=== PATIENT | female | born 1970 | race Caucasian/White ===

== ENCOUNTER 2017-09-08 15:12 | Emergency (ER) | payer OTHER, SELFPAY ==
--- NOTE | 2017-09-08 15:38 | HMH.EDUTC ---
[facility] – [place], [place] Disposition Clinical Impression: Left knee pain Qualifiers: Chronicity: chronic Qualified Code(s): M25.562 - Pain in left knee; G89.29 - Other chronic pain Disposition: Home, Self-Care Condition on Discharge: Good Prescriptions: Naproxen [Naprosyn 500mg tablet] 500 mg PO BID 15 Days #30 tab Referrals: Alee Bhagat APRN [Primary Care Provider] - Shaan Naranjo MD [Staff Physician] - Time of Disposition: 17:11 Medical Decision Making - Santosh Inquiry Pt receiving controlled substance: No Vital Signs: 09/08/17 15:44 Temperature 99.3 F Temperature Source Temporal Artery Scan Pulse Rate [Right Radial] 84 Respiratory Rate 20 Blood Pressure [Right Arm] 190/114 Blood Pressure Mean [Right Arm] 139 Blood Pressure Source [Right Arm] Manual Cuff/ Palpation Blood Pressure Position [Right Arm] Sitting 02 Sat by Pulse Oximetry 96 Oxygen Delivery Method Room Air Orders (Tests/Meds): ORDERS Category Date Time Status Knee XR left 4 views [XR knee LT 4V] Stat Exams 09/08/17 15:50 Taken - Radiology Data #1 Image Reviewed: Yes I reviewed the patient's radiology image Preliminary Findings: Abnormal (Osteoarthritis; no fracture) [facility] – [place], [place] HPI - General Stated complaint: painful knot on l knee Time Seen by Provider: 09/08/17 15:38 - History of Present Illness Provider Complaint: Patient states has had painful knot on left knee for several months without injury. Left knee has swelling as well. Location: left, lower extremity Quality: aching Relieving factors: none Exacerbating factors: movement Treatments prior to arrival: NSAID - Related Data Previous Rx's Medication Instructions Recorded Naproxen [Naprosyn 500mg tablet] 500 mg PO BID 15 Days #30 tab 09/08/17 Allergies Allergy/AdvReac Type Severity Reaction Status Date / Time No Known Allergies Allergy Verified 09/08/17 15:49 [facility] History I have reviewed the patient's past medical history: Yes Medical History: Reports:: Hypertension Other Medical History: Reports: Thyroid Disease ROS Obtained: Yes All systems reviewed & no additional complaints - Musculoskeletal Musculoskeletal: Reports joint pain, Reports joint stiffness, Reports joint swelling Physical Exam - General General appearance: alert, in no apparent distress - Respiratory Respiratory exam: Present: normal lung sounds bilaterally - Cardiovascular Cardiovascular exam: Present: regular rate, normal rhythm - Extremities Exam Extremities exam: Absent: calf tenderness - Expanded Lower Extremity Exam Left Knee exam: Present: tenderness, swelling, effusion - Neurological Exam Neurological exam: Present: alert, oriented X3 - Psychiatric Psychiatric exam: Present: normal affect, normal mood - Skin Skin exam: Present: warm
[2017-09-08 15:44] VITALS: BP 190/114; PULSE 84; RESP 20; TEMP 37.4; O2SAT 96; BMI 49.5
--- NOTE | 2017-09-08 15:50 | XR_ITS ---
XR knee LT 4V COMPARISON: None HISTORY: Knot felt on knee TECHNIQUE: AP lateral and oblique views FINDINGS: There is minor spurring of the tibial spines. There is a tiny bone fragment adjacent to the medial tibial spine possibly due to old osteochondral chip fracture. There is no significant joint space narrowing. Patella Is intact and I see no effusion. There is a small fabella noted. IMPRESSION: Question tiny old osteochondral chip fracture of the medial tibial spine otherwise essentially negative left knee
--- NOTE | 2017-09-08 15:50 | ED_ITS ---
[facility] – [place] Disposition Clinical Impression: Left knee pain Qualifiers: Chronicity: chronic Qualified Code(s): M25.562 - Pain in left knee; G89.29 - Other chronic pain Disposition: Home, Self-Care Condition on Discharge: Good Prescriptions: Naproxen [Naprosyn 500mg tablet] 500 mg PO BID 15 Days #30 tab Referrals: Alee Bhagat APRN [Primary Care Provider] - Shaan Naranjo MD [Staff Physician] - Time of Disposition: 17:11 Medical Decision Making - Santosh Inquiry Pt receiving controlled substance: No Vital Signs: 09/08/17 15:44 Temperature 99.3 F Temperature Source Temporal Artery Scan Pulse Rate [Right Radial] 84 Respiratory Rate 20 Blood Pressure [Right Arm] 190/114 Blood Pressure Mean [Right Arm] 139 Blood Pressure Source [Right Arm] Manual Cuff/ Palpation Blood Pressure Position [Right Arm] Sitting 02 Sat by Pulse Oximetry 96 Oxygen Delivery Method Room Air Orders (Tests/Meds): ORDERS Category Date Time Status Knee XR left 4 views [XR knee LT 4V] Stat Exams 09/08/17 15:50 Taken - Radiology Data #1 Image Reviewed: Yes I reviewed the patient's radiology image Preliminary Findings: Abnormal (Osteoarthritis; no fracture) [facility] [place] HPI - General Stated complaint: painful knot on l knee Time Seen by Provider: 09/08/17 15:38 - History of Present Illness Provider Complaint: Patient states has had painful knot on left knee for several months without injury. Left knee has swelling as well. Location: left, lower extremity Quality: aching Relieving factors: none Exacerbating factors: movement Treatments prior to arrival: NSAID - Related Data Previous Rx's Medication Instructions Recorded Naproxen [Naprosyn 500mg tablet] 500 mg PO BID 15 Days #30 tab 09/08/17 Allergies Allergy/AdvReac Type Severity Reaction Status Date / Time No Known Allergies Allergy Verified 09/08/17 15:49 [facility] History I have reviewed the patient's past medical history: Yes Medical History: Reports:: Hypertension Other Medical History: Reports: Thyroid Disease ROS Obtained: Yes All systems reviewed & no additional complaints - Musculoskeletal Musculoskeletal: Reports joint pain, Reports joint stiffness, Reports joint swelling Physical Exam - General General appearance: alert, in no apparent distress - Respiratory Respiratory exam: Present: normal lung sounds bilaterally - Cardiovascular Cardiovascular exam: Present: regular rate, normal rhythm - Extremities Exam Extremities exam: Absent: calf tenderness - Expanded Lower Extremity Exam Left Knee exam: Present: tenderness, swelling, effusion - Neurological Exam Neurological exam: Present: alert, oriented X3 - Psychiatric Psychiatric exam: Present: normal affect, normal mood - Skin Skin exam: Present: warm
[2017-09-08 17:10] VITALS: BP 180/100; PULSE 86; RESP 20; TEMP 37.3; O2SAT 97
== END 2017-09-08 17:27 | disposition home or self-care (01) ==
PROVIDERS: Emergency Provider Physician Assistant; Family Provider Internal Medicine Adolescent Medicine; PCP Nurse Practitioner Family
DX: M25.562 Pain in left knee (principal); G89.29 Other chronic pain
CPT/HCPCS: 73564; 99201